=== PATIENT | male | born 1955 | race Caucasian/White ===

== ENCOUNTER → 2019-07-03 | Outpatient (CLI) | payer OTHER ==
[~2019-07-03] VITALS: Ht 177.8 cm; Wt 95.3 kg
[~2019-07-03] MED LIST: CELEXA20 MG PO; CRESTOR10 MG PO; LISINOPRIL20 MG PO; OMEGA-31000 M1 PO; OMEPRAZOLE20 M1 PO; TOPROL XL100 MG PO; TYLENOL PM EX-1 EACH PO; [UNRECOGNIZED DRUG - OTHER] PO
--- NOTE | 2019-07-05 11:03 | P ---
[facility] [place] [address] PROCEDURE REPORT Name: KENRICK ORONA Room #: REG [facility].#: [id number] Admission: 07/03/19 Attend Phys: Willian Gallagher Discharge: Date of : 59 Report #: [id number] THIS REPORT FOR: //name// CC: Willian Bailey MD DATE OF SERVICE: 07/03/2019 PROCEDURE PERFORMED: Colonoscopy with biopsies. HISTORY OF PRESENT ILLNESS: The patient is a 63-year-old male with a history of colon polyps, last colonoscopy 2010. Denies any symptoms. No family history of colon cancer. DESCRIPTION OF PROCEDURE: The risks and benefits of the procedure were explained to the patient, those risks including but not limited to bleeding, perforation and the risk of sedation. He understood these risks and gave me informed consent. Sedation was given using propofol per anesthesia. Next, a digital rectal exam was initially performed, which was normal. Next, using a standard Olympus colonoscope, the scope was placed in the patient's anus and advanced under direct vision to the cecum. The overall prep was good. Cecum and ileocecal valve were normal in appearance. The ascending colon was normal. In the transverse colon, a 3 mm sessile polyp was noted. This was removed with cold forceps, otherwise normal. Descending colon was normal. Multiple diverticula, small diverticula were noted in the sigmoid colon, no evidence of inflammation. The rectal mucosa was normal. On retroflexion, no abnormalities were noted. The scope was then withdrawn and the procedure terminated. The patient tolerated the procedure well. IMPRESSION: 1. Small colonic polyp. 2. Sigmoid diverticulosis. 3. Otherwise, normal colonoscopy. RECOMMENDATIONS: 1. Await biopsy results. 2. If polyp is hyperplastic, repeat in 10 years; if adenomatous polyp repeat in 5 years. Thank you for allowing me to participate in his care. <ELECTRONICALLY SIGNED> By: Willian Bee MD 07/05/19 1103 [id number] Willian Bee MD /nt
--- NOTE | 2019-07-05 14:07 | PATH ---
[facility] [address] [place] [address] PATHOLOGY RPT PROCEDURE Name: KENRICK ORONA Room #: REG [facility].#: [id number] Admission: 07/03/19 Date of : 59 Discharge: Report #: [id number] Path Case #: [id number] [facility] Accession Number: [id number] . 01 Material submitted: . colon - BIOPSY POLYP AT TRANSVERSE COLON. Modifiers: transverse . 01 Clinical history: . Preop DX: Hx polyps Postop DX: Colon polyp, diverticulosis . 02 Diagnosis: Colon, transverse, biopsy: - Adenomatous polyp. (SKM:pit; 07/05/2019) QTP/07/05/2019 . 02 Electronically signed: . Evaristo Saldivar MD, Pathologist NPI- [id number] . 01 Gross description: . Received in formalin labeled "[place], Kenrick, Bx polyp at transverse colon," are two segments of pattreson soft tissue measuring 0.3 x 0.2 x 0.2 cm and 0.4 x 0.3 x 0.2 cm in greatest dimensions. The specimen is submitted entirely in cassette A1. ([facility]; 07/04/2019) XDC/XDC . 02 Pathologist provided ICD-10: D12.3 . 02 CPT . 226384 Specimen Comment: A courtesy copy of this report has been sent to Specimen Comment: [phone], . Specimen Comment: Report sent to and Performed at: [address], [place] [id number] MD Benoit Wilks MD Phone: [phone] Performed at: [address] [id number] MD Sanjana Crews MD Phone: [phone]
== END | disposition home or self-care (01) ==
LOC: GI 08:02
DX: Z12.11 Encounter for screening for malignant neoplasm of colon (principal); Z86.010 Personal history of colon polyps; D12.3 Benign neoplasm of transverse colon; K57.30 Diverticulosis of large intestine without perforation or abscess without bleeding; I10 Essential (primary) hypertension; E78.5 Hyperlipidemia, unspecified; E11.9 Type 2 diabetes mellitus without complications; F32.9 Major depressive disorder, single episode, unspecified; K21.9 Gastro-esophageal reflux disease without esophagitis; Z85.6 Personal history of leukemia; Z98.890 Other specified postprocedural states; Z79.899 Other long term (current) drug therapy
CPT/HCPCS: 62110; 62900